=== PATIENT | male | born 1995 | race African-American/Black ===

== ENCOUNTER 2016-09-08 15:18 | Emergency (ER) | payer SELFPAY ==
[2016-09-08 15:37] LABS: BASOPHIL COUNT 0.1 K/uL (0-0.1); EOSINOPHIL (%) 1.2 % (0-5); EOSINOPHIL COUNT 0.2 K/uL (0-0.3); HEMATOCRIT 44.2 % (38.0-50.0); IMMATURE GRANULOCYTE (%) 0.4 % (0.0-0.7); IMMATURE GRANULOCYTE COUNT 0.1 K/uL; INSTRUMENT ABS NEUTROPHIL CT 9.4 K/uL; LYMPHOCYTE COUNT 2.5 K/uL (1.0-2.8); MCH 28.5 PG (29.0-34.0); MCHC 33.7 G/DL (30.0-36.0); MCV 84.5 FL (86-99); MEAN PLAT.VOLUME 11.1 uM^3 (9.0-12.4); MONOCYTE (%) 6.3 % (3-12); MONOCYTE COUNT 0.8 K/uL (0-0.8); NEUTROPHIL (%) 72.6 % (45-76); NEUTROPHIL COUNT 9.4 K/uL (1.8-6.4); PLATELET COUNT 231 K/uL (156-360); RBC DIS.WIDTH-CV 12.3 % (11.8-14.6); RBC DIS.WIDTH-SD 37.2 % (39-53); RED BLOOD COUNT 5.23 M/uL (4.00-5.50)
[2016-09-08 15:48] LABS: AMYLASE 138 IU/L (1-118); CHLORIDE 105 mEq/L (99-109); POTASSIUM 3.8 mEq/L (3.7-5.4); SODIUM 141 mEq/L (136-147)
[2016-09-08 15:49] LABS: GLUCOSE 94 mg/dL (70-99)
[2016-09-08 15:51] LABS: ANION GAP 10 MEQ/L (2-14)
[2016-09-08 15:53] LABS: SERUM ETHYL ALCOHOL 12 mg/dL
[2016-09-08 15:54] LABS: UREA NITROGEN (BUN) 11 mg/dL (9-23)
[2016-09-08 15:56] LABS: GFR ESTIMATE (CALCULATED) > 59 mL/min/; LIPASE 30 U/L (1.0-51.0)
[2016-09-08] MEDS ORDERED: LORTAB 10-3251 EACH PO (16:41)
[2016-09-08] MEDS ORDERED: MOTRIN800 MG PO (16:41)
== END 2016-09-08 17:36 | disposition home or self-care (01) ==
LOC: EME 15:18 → TRA 15:18 → EME 17:36
PROVIDERS: Emergency Medicine
PROC: 2W3QX1Z Immobilization of Right Lower Leg using Splint (ICD-10-PCS; principal; 2016-09-08)
DX: S82.61XA Displaced fracture of lateral malleolus of right fibula, initial encounter for closed fracture (principal); V86.69XA Passenger of other special all-terrain or other off-road motor vehicle injured in nontraffic accident, initial encounter; R51 Headache
CPT/HCPCS: 70450; 73610; 80048; 81003; 82150; 83690; 85025; 86900; 86901; G0480

== ENCOUNTER 2017-08-25 09:55 | Emergency (ER) | payer OTHER ==
[~2017-08-25] VITALS: Ht 170.2 cm; Wt 66.4 kg
[~2017-08-25 09:55] MED LIST: LORTAB 10-3251 EACH PO; MOTRIN800 MG PO
[2017-08-25] MEDS ORDERED: MOTRIN800 MG PO (11:26)
[2017-08-25] MEDS ORDERED: AUGMENTIN875 MG PO (11:26)
[2017-08-25 11:46] VITALS: BP 128/71
== END 2017-08-25 11:47 | disposition home or self-care (01) ==
LOC: EME 09:55 → EXP 09:55
PROC: 0H92XZZ Drainage of Right Ear Skin, External Approach (ICD-10-PCS; principal; 2017-08-25)
DX: H60.01 Abscess of right external ear (principal); F17.200 Nicotine dependence, unspecified, uncomplicated
CPT/HCPCS: 99281; 99284